=== PATIENT | male | born 1940 | race Caucasian/White ===

== ENCOUNTER 2020-03-19 06:54 | Outpatient (CLI) | payer MEDICARE ==
[2020-03-19] VITALS (17 sets, daily range): BP systolic 92–135; BP diastolic 54–76
== END 2020-03-19 23:59 | disposition home or self-care (01) ==
LOC: CARD DIAG 06:54
PROVIDERS: ATTEND Internal Medicine Interventional Cardiology
DX: R55 Syncope and collapse (principal)
CPT/HCPCS: 93660

== ENCOUNTER 2020-10-30 10:11 | Day surgery (SDC) | payer MEDICARE ==
[2020-10-20 15:31] LABS: CLARITY,URINE CLEAR (Clear); COLOR,URINE YELLOW (Yellow); GLUCOSE, URINE NEGATIVE (Neg); KETONES,URINE NEGATIVE (Neg); LEUKOCYTE ESTERASE ,URINE NEGATIVE (Neg); NITRITES, URINE NEGATIVE (Neg); OCCULT BLOOD,URINE NEGATIVE (Neg); PH,URINE 7.5 (4.8-8.0); PROTEIN,URINE NEGATIVE (Neg)
[2020-10-20 15:35] LABS: BASOPHILS # (AUTO) 0.1 X10'3 (0-0.2); BASOPHILS % (AUTO) 0.8 % (0-1); EOSINOPHILS # (AUTO) 0.3 X10'3 (0-0.9); EOSINOPHILS % (AUTO) 3.5 % (0-6); LYMPHOCYTES # (AUTO) 1.9 X10'3 (1.1-4.8); LYMPHOCYTES % (AUTO) 26.5 % (21-51); MEAN CORPUSCULAR HEMOGLOBIN 31.5 PG (27.0-31.0); MEAN CORPUSCULAR HGB CONC 33.4 g/dL (33.0-36.5); MEAN CORPUSCULAR VOLUME 94.3 FL (78-98); MEAN PLATELET VOLUME 8.9 FL (7.4-10.4); MONOCYTES # (AUTO) 0.9 X10'3 (0-0.9); MONOCYTES % (AUTO) 11.9 % (2-12); NEUTROPHILS # (AUTO) 4.2 X10'3 (1.8-7.7); NEUTROPHILS % (AUTO) 57.3 % (42-75); PRE OP HEMATOCRIT 41.6 % (42.0-52.0); PRE OP HEMOGLOBIN 13.9 g/dL (14.0-17.9); PRE OP PLATELET COUNT 215 X10'3 (140-440); RED BLOOD COUNT 4.41 X10'6 (4.70-6.10); RED CELL DISTRIBUTION WIDTH 13.9 % (11.5-14.5)
[2020-10-20 15:39] LABS: UA COLLECTION TYPE CLN CATCH MIDSTREAM
[2020-10-20 15:50] LABS: ALBUMIN 3.8 G/DL (3.4-5.0); ALBUMIN/GLOBULIN RATIO 1.2 (1.1-1.5); ALKALINE PHOSPHATASE 70 IU/L (46-116); BLOOD UREA NITROGEN 19 MG/DL (7-18); BUN/CREATININE RATIO 20.4 (5.4-32.0); CALCIUM 9.1 MG/DL (8.5-10.1); CHLORIDE 104 MMOL/L (99-107); CREATININE 0.93 MG/DL (0.60-1.10); PRE OP ALT 35 U/L (30-65); PRE OP ANION GAP 6 (8-16); PRE OP AST 27 U/L (10-37); PRE OP BILIRUB, TOTAL 0.9 MG/DL (0.0-1.0); PRE OP GLUCOSE 109 MG/DL (70-104); PRE OP POTASSIUM 4.2 MMOL/L (3.4-5.1); PRE OP SODIUM 141 MMOL/L (135-145); TOTAL CARBON DIOXIDE 30.8 MMOL/L (24-32); TOTAL PROTEIN 7.1 G/DL (6.4-8.2); eGFR 79 ML/MIN
[~2020-10-30] VITALS: Ht 195.6 cm; Wt 153.0 kg
[2020-10-30] VITALS (7 sets, daily range): BP systolic 136–174; BP diastolic 66–80
[~2020-10-30 10:11] MED LIST: CETI-90 PO; CYAN250010 PO; CYCL-394 PO; ERGO400C; ESCI20TA39 PO; FLO0.4C PO; FURO-149 PO; POTA20PA40 PO; ceFAZolin/D5W- 1GM premix 50 ML IV ONE; cefazolin/dext.iso 2gm/100ml IV ONE; famotidine 20mg tablet PO ONE; ringers solution, lacted 1,000 ML IV SCH
[2020-10-30] MEDS ORDERED: ROPIVAcaine 0.5% (5mg/ml) 30ml vial ONE (12:22)
[2020-10-30] MEDS ORDERED: meperidine/PF 25mg/ml syringe IV PRN ×3 (13:15)
[2020-10-30] MEDS ORDERED: morphine 2 MG/ML inj. syringe IV PRN (13:15)
[2020-10-30] MEDS ORDERED: ondansetron/PF 4mg/2ml inj IV PRN (13:15)
[2020-10-30] MEDS ORDERED: proCHLORperazine 10 MG/2 ml inj IV PRN (13:15)
[2020-10-30] MEDS ORDERED: morphine 4 MG/ML inj SYRINge IV PRN (13:15)
[2020-10-30] MEDS ORDERED: ringers solution, lacted 1,000 ML IV SCH (13:15)
[2020-10-30] MEDS ORDERED: BUPIVAcaine/PF 2.5 mg/ml (0.25%) 30ml vial ONE (14:01)
[2020-10-30] MEDS ORDERED: bacitracin 15gm ointment TP ONE (14:01)
[2020-10-30] MEDS ORDERED: sevoflurane 250ml liquid IH ONE (14:03)
[2020-10-30] MEDS ORDERED: fentaNYL/PF 50MCG/1 ML 2ML syringe ONE (14:15)
[2020-10-30] MEDS ORDERED: midazolam 1 mg/ML 2ml injection ONE (14:15)
[2020-10-30] MEDS ORDERED: LIDOcaine 2% (20mg/ml) 5ml vial ONE (14:15)
[2020-10-30] MEDS ORDERED: propofol inj 20 ML IV ONE (14:54)
[2020-10-30] MEDS ORDERED: dexamethasone sod phosphate 4mg/ml inj. ONE (14:54)
[2020-10-30] MEDS ORDERED: ondansetron/PF 4mg/2ml inj ONE (14:54)
--- NOTE | 2020-10-30 16:17 | NUR ---
Received from OR via [facility], accompanied by Anesthesiologist Amalia and report given by Anesthesiolgist. 20G IV to right hand, right foot dressing and gazue wrap in place with boot. Toes exposed good cap refill. IVF LR at 100cc/hr. VS WNL. Pt sleepy but responsive.
--- NOTE | 2020-10-30 17:27 | NUR ---
Pt discharged to vehicle by wheelchair with incident. IV DC'd, dressing remains CDI and boot is in place. all belongings returned to patient. states she knows MD requests only tylenol and ibuprofen for pain control. Both patient and verbalized understanding of all DC instrustions. IV DC'd.
== END 2020-10-30 17:27 | disposition home or self-care (01) ==
LOC: PAS 10:11
PROVIDERS: ATTEND Podiatrist Foot & Ankle Surgery
DX: M19.071 Primary osteoarthritis, right ankle and foot (principal); M24.574 Contracture, right foot; M20.21 Hallux rigidus, right foot; M20.41 Other hammer toe(s) (acquired), right foot; G89.18 Other acute postprocedural pain; M79.671 Pain in right foot
CPT/HCPCS: 28270; 28285; 28750; 36415; 64447; 64450; 73620; 76000; 76942; 80053; 81003; 82948; 85025; 93005; A6223; C1713; J0690; J1100; J2001; J2250; J2405; J2704; J3010; J3490; J7120; A4215; A4618; A6449; A7000; J2795